=== PATIENT | female | born 1995 | race Caucasian/White ===

== ENCOUNTER → 2023-02-28 09:35 | Outpatient (CLI) | payer OTHER, MEDICAID, SELFPAY ==
[2023-02-28 11:18] LABS: Collection Time Urine 24 Hours; Protein (Total) Urine Random 77 mg/dL (0-12); Total Protein 24 Hour Urine 2310 mg/day (42-225); Total Volume Urine 3000 mL
== END ==
PROVIDERS: Referring Provider Midwife; Visit Provider Midwife
DX: Z34.03 Encounter for supervision of normal first pregnancy, third trimester (principal)
CPT/HCPCS: 84156

== ENCOUNTER 2023-02-28 10:02 | Observation (INO) | payer MEDICAID, SELFPAY ==
--- NOTE | 2023-02-28 10:45 | DI.US.S_ITS ---
PROCEDURE: US OB LIMITED INDICATIONS: GROWTH/ BIOPHYSICAL PROFILE OUTSIDE/PRIOR DATING DATA: Last menstrual period (LMP): 06/18/2022 LMP-based estimated date of delivery (JOSE EDUARDO): 03/25/2023 TECHNIQUE: Real-time scanning was performed of the fetus, with image documentation. Biometric measurements were obtained. Biophysical profile and umbilical artery spectral Doppler measurements were obtained. COMPARISON: None. FINDINGS: A single living intrauterine gestation is present. Presentation: Vertex. Placenta: Placental position is anterior, without previa. Amniotic fluid index: 7.6 cm, normal range is 5-24 cm. Single deepest vertical pocket is 3.8 cm. heart rate: 145 beats per minute. Maternal cervical canal: 4.6 cm long. Normal lower limit is 2.5 cm. BPD is 8.7 centimeters, 35 weeks, head circumference is 30.7 centimeters, 34 weeks and 2 days, abdominal circumference is 29.5 centimeters, 33 weeks and 3 days, femur length is 6.5 centimeters, 33 weeks and 5 days. Estimated gestational age is 36 weeks and 3 days. Biometry today measures 34 weeks and 1 day, at the 4th percentile. EFW is 2237 grams. 8/8 biophysical profile. Umbilical artery Doppler measures an ST ratio of up to 3.4-2.9. This is at the upper limit of normal for gestational age. No reversal of diastolic flow. IMPRESSION: biometric measurements as above, suggestive of less than expected growth, at the 4th percentile given working JOSE EDUARDO of 03/25/2023. Clinical correlation is recommended for dating. Fluid is within normal limits. BPP is 8/8. Umbilical artery Doppler with SD ratio at the upper limit of normal for gestational age (3.4). Consider continued follow-up. Dictated by: Ludwin Estevez M.D. on 02/28/2023 at 12:05 Approved by: Ludwin Estevez M.D. on 02/28/2023 at 12:09
[2023-02-28] MEDS: HYDRALAZINE 20 MG/ML VIAL 5 MG IV ×2 (10:59→11:27)
[2023-02-28 11:13] LABS: Add Manual Diff / Slide Review NO; Basophils Absolute Auto 0 /uL (0-100); Basophils Percent Auto 0.4 % (0-2); Eosinophils Absolute Auto 100 /uL (0-450); Eosinophils Percent Auto 0.9 % (2-4); Hematocrit 39.9 % (36-46); Hemoglobin 13.1 g/dL (12.0-16.0); Lymphocytes Absolute Auto 2500 /uL (1100-4500); Lymphocytes Percent Auto 29.1 % (25-40); Mean Corpuscular HGB Conc 32.7 % (30-36); Mean Corpuscular Hemoglobin 25.8 PG (26-34); Mean Corpuscular Volume 78.7 fL (80-100); Monocytes Absolute Auto 800 /uL (0-900); Monocytes Percent Auto 9.2 % (3-14); Neutrophils Absolute Auto 5200 /uL (1500-7000); Neutrophils Percent Auto 60.4 % (50-75); Platelet Count 291 X10^3/uL (150-400); Red Blood Cell Count 5.07 X10^6/uL (4.0-5.2); Red Cell Distribution Width 14.6 % (11.6-14.8); White Blood Cell Count 8.6 X10^3/uL (4.5-11.0)
[2023-02-28 11:19] LABS: Appearance Urine UA CLEAR; Bilirubin Urine UA NEGATIVE (NEGATIVE); Color Urine UA YELLOW; Glucose Urine UA NEGATIVE (Negative); Ketones Urine UA NEGATIVE (NEGATIVE); Leukocyte Esterase Urine UA NEGATIVE (NEGATIVE); Nitrite Urine UA NEGATIVE (Negative); Occult Blood Urine UA 1+ (Negative); Protein Urine UA NEGATIVE (Negative); Specific Gravity Urine UA <=1.005 (1.000-1.035); Urobilinogen Urine UA 0.2 E.U./dL (0.2); pH Urine UA 6.5 (4.5-8.0)
[2023-02-28 11:23] LABS: UR Morphine/Opiate cutoff 300 Negative (Negative); Ur Creatinine Normal (Normal); Ur Specific Gravity Normal (Normal); Urine Amphetamines Negative (Negative); Urine Barbiturates Negative (Negative); Urine Benzodiazepines Negative (Negative); Urine Cocaine Negative (Negative); Urine MDMA Negative (Negative); Urine Methadone Negative (Negative); Urine Methamphetamines Negative (Negative); Urine Oxycodone Negative (Negative); Urine Phencyclidine Negative (Negative); Urine Tetrahydrocannabinol Negative (Negative); Urine Tricyclic Antidepressant Negative (Negative); Urine pH Normal (Normal)
[2023-02-28 11:26] LABS: Bacteria Urine Few (2-10); Culture Indicated Urine Cult Not Indicated; RBC Urine 0-1/HPF (0-5/HPF); Squamous Epithelial Cell Urine 5-10 /HPF (0-5/HPF); WBC Urine 1-5/HPF (0-5/HPF)
[2023-02-28 11:29] LABS: Aspartate Aminotransferase 33 IU/L (14-36); BUN Creatinine Ratio 20.8 (6-22); Blood Urea Nitrogen 10 mg/dL (7-17); Estimated Glomerular Filt Rate > 60 mL/min (>60); Magnesium 1.8 mg/dL (1.6-2.3); Uric Acid 4.4 mg/dL (2.5-6.2)
[2023-02-28 11:35] LABS: Protein (Total) Urine Random 38 mg/dL (0-12); Protein Creatinine Ratio Urine 4.75 GRAM/24H
[2023-02-28] MEDS: LABETALOL 20 MG/4 ML SYRINGE IV ×3 (12:32→20:31)
--- NOTE | 2023-02-28 14:26 | PM.OBHP.1 ---
OB HPI Date/Time Date of admission: 02/28/23 Date Patient Seen: 02/28/23 Time Patient Seen: 10:15 History of Present Condition Chief complaint: Hypertension in : 1 Para: 0 Estimated Date of Delivery: 03/25/23 Estimated Gestational Age (weeks): 36 Narrative: Farhan Segundo is a 28 year old female who presented to labor and delivery on encouragement from her manager environmental health for elevated blood pressures in History of Present care: limited care (Patient initial visit was approximately 20 weeks' gestation normal follow-up since) and initiated at week # (20) Dating criteria: based on LMP only Ultrasounds: normal mid trimester US Obstetrical complications: gestational hypertension (Beginning around 20 weeks) Medical complications: none Preadmission Labs Blood type: AB (+) positive -: Antibody screen: negative, GBS status: unknown (Patient refused), HBsAG: negative, HIV: negative and RPR/VDLR: negative -: Chlamydia screen: not detected and Gonorrhea screen: not detected -: Rubella: immune HCAB: negative 1 hr GTT: 85 Evaluation Evaluation Baseline heart rate: 150 Variability: Moderate (11-25) monitor accelerations: Present Monitor Decelerations: Absent Uterine Contraction Intensity: Mild Status: Category l Meds Home Medications and Allergies Allergies Allergy/AdvReac Type Severity Reaction Status Date / Time Sulfa (Sulfonamide Allergy Severe Shortness Verified 02/28/23 14:32 Antibiotics) of breath Review of Systems Review of Systems Narrative: Patient denies headaches, scotomata, epigastric pain. Good movement. No leakage of fluid. No vaginal bleeding. No contractions. OB Exam Narrative Exam Narrative: HEENT exam within normal limits. Lungs are clear to auscultation percussion. No thyromegaly. Heart is regular rate and rhythm no S3-S4 murmurs. Abdomen is soft, nontender. Abdomen is gravid. Fetus is vertex. Extremities without edema and nontender. Normal DTRs. Objective Imaging US - abdomen: Radiologist's impression: PROCEDURE:? US OB LIMITED ? INDICATIONS:? GROWTH/ BIOPHYSICAL PROFILE ? OUTSIDE/PRIOR DATING DATA:? Last menstrual period (LMP):? 06/18/2022 LMP-based estimated date of delivery (JOSE EUDARDO):? 03/25/2023 ? TECHNIQUE: Real-time scanning was performed of the fetus, with image documentation.? Biometric measurements were obtained.? Biophysical profile and umbilical artery spectral Doppler measurements were obtained. ? COMPARISON:? None. ? FINDINGS:? A single living intrauterine gestation is present.? Presentation:? Vertex.? Placenta:? Placental position is anterior, without previa.? ? Amniotic fluid index:? 7.6 cm, normal range is 5-24 cm. Single deepest vertical pocket is 3.8 cm.? ? heart rate:? 145 beats per minute.? Maternal cervical canal:? 4.6 cm long.? Normal lower limit is 2.5 cm.? ? BPD is 8.7 centimeters, 35 weeks, head circumference is 30.7 centimeters, 34 weeks and 2 days, abdominal circumference is 29.5 centimeters, 33 weeks and 3 days, femur length is 6.5 centimeters, 33 weeks and 5 days. ? Estimated gestational age is 36 weeks and 3 days. ? Biometry today measures 34 weeks and 1 day, at the 4th percentile.? EFW is 2237 grams. ? 01/28 biophysical profile. ? Umbilical artery Doppler measures an ST ratio of up to 3.4-2.9.? This is at the upper limit of normal for gestational age.? No reversal of diastolic flow. ? IMPRESSION:? biometric measurements as above, suggestive of less than expected growth, at the 4th percentile given working JOSE EDUARDO of 03/25/2023.? Clinical correlation is recommended for dating. Fluid is within normal limits. ? BPP is 8. ? Umbilical artery Doppler with SD ratio at the upper limit of normal for gestational age (3.4) Labs 02/28/23 10:50 02/28/23 10:50 Labs: Laboratory Results - last 24 hr 02/28/23 02/28/23 02/28/23 10:30 10:30 10:30 WBC RBC Hgb Hct MCV MCH MCHC RDW Plt Count Neut % (Auto) Lymph % (Auto) [place] % (Auto) Eos % (Auto) Baso % (Auto) Neut # (Auto) Lymph # (Auto) [place] # (Auto) Eos # (Auto) Baso # (Auto) BUN Creatinine Estimated GFR BUN/Creatinine Ratio Uric Acid Magnesium AST Urine Color Yellow Urine Appearance Clear Urine pH 6.5 Ur Specific [place] <=1.005 Urine Protein Negative Urine Glucose (UA) Negative Urine Ketones Negative Urine Occult Blood 1+ H Urine Nitrate Negative Urine Bilirubin Negative Urine Urobilinogen 0.2 Ur Leukocyte Esterase Negative Urine RBC 0-1/hpf Urine WBC 1-5/hpf Ur Squamous Epith Cells 5-10 /hpf H Urine Bacteria Few (2-10) H Ur Culture Indicated? Cult not indicated U Random Total Protein 38 H Urine Creatinine 8.0 Protein/Creatinin Ratio 4.75 U Opiates 300ng/mL cut Negative Ur Oxycodone Screen Negative Urine Methadone Screen Negative Ur Barbiturates Screen Negative U Tricyclic Antidepress Negative Ur Phencyclidine Scrn Negative Ur Amphetamines Screen Negative U Methamphetamines Scrn Negative Ur MDMA Scrn (Ecstasy) Negative U Benzodiazepines Scrn Negative Urine Cocaine Screen Negative U Marijuana (THC) Screen Negative 02/28/23 02/28/23 10:50 10:50 WBC 8.6 RBC 5.07 Hgb 13.1 Hct 39.9 MCV 78.7 L MCH 25.8 L MCHC 32.7 RDW 14.6 Plt Count 291 Neut % (Auto) 60.4 Lymph % (Auto) 29.1 [place] % (Auto) 9.2 Eos % (Auto) 0.9 L Baso % (Auto) 0.4 Neut # (Auto) 5200 Lymph # (Auto) 2500 [place] # (Auto) 800 Eos # (Auto) 100 Baso # (Auto) 0 BUN 10 Creatinine 0.48 L Estimated GFR > 60 BUN/Creatinine Ratio 20.8 Uric Acid 4.4 Magnesium 1.8 AST 33 Urine Color Urine Appearance Urine pH Ur Specific [place] Urine Protein Urine Glucose (UA) Urine Ketones Urine Occult Blood Urine Nitrate Urine Bilirubin Urine Urobilinogen Ur Leukocyte Esterase Urine RBC Urine WBC Ur Squamous Epith Cells Urine Bacteria Ur Culture Indicated? U Random Total Protein Urine Creatinine Protein/Creatinin Ratio U Opiates 300ng/mL cut Ur Oxycodone Screen Urine Methadone Screen Ur Barbiturates Screen U Tricyclic Antidepress Ur Phencyclidine Scrn Ur Amphetamines Screen U Methamphetamines Scrn Ur MDMA Scrn (Ecstasy) U Benzodiazepines Scrn Urine Cocaine Screen U Marijuana (THC) Screen Assessment and Plan Assessment and Plan Assessment and Plan narrative: 28-year-old EDC 04/22/2023 at 36 weeks 3 days with severe preeclampsia by blood pressure and proteinuria. IUGR at 4th percentile on ultrasound today with NAKUL of 7.6. No evidence of HELLP syndrome. Patient will be treated with IV blood pressure medication. Begin Mag sulfate. Betamethasone. Discussed due to no early dating consider transport to hospital with available NICU. Time Spent with Patient Total time spent with greater than 50% in coordination of care (as documented) at patient's floor/unit and/or counseling patient:: Greater than 35 minutes
[2023-02-28] MEDS: MAGNESIUM SULFATE 4 GM/100 ML PIGGYBACK IV (14:35)
--- NOTE | 2023-02-28 14:38 | PM.PN.1 ---
Subjective Subjective Date Patient Seen: 02/28/23 Time Patient Seen: 14:38 Interval history: Patient with poor blood pressure control despite IV hydralazine and IV labetalol. Patient being resistant at all points to initially having any other medication then hydralazine and initially refused magnesium sulfate until she talks to her ?health care analyst at 8:00 p.m. ?. Patient is declining betamethasone at this time as well. After continuing to discussed with the patient my concern that she could have a seizure or stroke that could lead to her and or the baby's she has finally agreed to start magnesium sulfate but is currently refusing further treatment. Exam Vital Signs (past 8 hours): Blood pressure currently 137/95 with pulse of 84 Objective Labs 02/28/23 10:50 02/28/23 10:50 Labs: Laboratory Results - last 24 hr 02/28/23 02/28/23 02/28/23 10:30 10:30 10:30 WBC RBC Hgb Hct MCV MCH MCHC RDW Plt Count Neut % (Auto) Lymph % (Auto) [place] % (Auto) Eos % (Auto) Baso % (Auto) Neut # (Auto) Lymph # (Auto) [place] # (Auto) Eos # (Auto) Baso # (Auto) BUN Creatinine Estimated GFR BUN/Creatinine Ratio Uric Acid Magnesium AST Urine Color Yellow Urine Appearance Clear Urine pH 6.5 Ur Specific [place] <=1.005 Urine Protein Negative Urine Glucose (UA) Negative Urine Ketones Negative Urine Occult Blood 1+ H Urine Nitrate Negative Urine Bilirubin Negative Urine Urobilinogen 0.2 Ur Leukocyte Esterase Negative Urine RBC 0-1/hpf Urine WBC 1-5/hpf Ur Squamous Epith Cells 5-10 /hpf H Urine Bacteria Few (2-10) H Ur Culture Indicated? Cult not indicated U Random Total Protein 38 H Urine Creatinine 8.0 Protein/Creatinin Ratio 4.75 U Opiates 300ng/mL cut Negative Ur Oxycodone Screen Negative Urine Methadone Screen Negative Ur Barbiturates Screen Negative U Tricyclic Antidepress Negative Ur Phencyclidine Scrn Negative Ur Amphetamines Screen Negative U Methamphetamines Scrn Negative Ur MDMA Scrn (Ecstasy) Negative U Benzodiazepines Scrn Negative Urine Cocaine Screen Negative U Marijuana (THC) Screen Negative 02/28/23 02/28/23 10:50 10:50 WBC 8.6 RBC 5.07 Hgb 13.1 Hct 39.9 MCV 78.7 L MCH 25.8 L MCHC 32.7 RDW 14.6 Plt Count 291 Neut % (Auto) 60.4 Lymph % (Auto) 29.1 [place] % (Auto) 9.2 Eos % (Auto) 0.9 L Baso % (Auto) 0.4 Neut # (Auto) 5200 Lymph # (Auto) 2500 [place] # (Auto) 800 Eos # (Auto) 100 Baso # (Auto) 0 BUN 10 Creatinine 0.48 L Estimated GFR > 60 BUN/Creatinine Ratio 20.8 Uric Acid 4.4 Magnesium 1.8 AST 33 Urine Color Urine Appearance Urine pH Ur Specific [place] Urine Protein Urine Glucose (UA) Urine Ketones Urine Occult Blood Urine Nitrate Urine Bilirubin Urine Urobilinogen Ur Leukocyte Esterase Urine RBC Urine WBC Ur Squamous Epith Cells Urine Bacteria Ur Culture Indicated? U Random Total Protein Urine Creatinine Protein/Creatinin Ratio U Opiates 300ng/mL cut Ur Oxycodone Screen Urine Methadone Screen Ur Barbiturates Screen U Tricyclic Antidepress Ur Phencyclidine Scrn Ur Amphetamines Screen U Methamphetamines Scrn Ur MDMA Scrn (Ecstasy) U Benzodiazepines Scrn Urine Cocaine Screen U Marijuana (THC) Screen Assessment & Plan Assessment and plan (1) 36 weeks gestation of : Status: Acute (2) Severe pre-eclampsia affecting first : Status: Acute (3) Asymmetric IUGR affecting , antepartum: Status: Acute Assessment & Plan narrative: Patient with severe preeclampsia, asymmetrical IUGR infant with patient resistance to protocol for treatment for severe preeclampsia. At this time patient is finally convinced that we can start magnesium sulfate. She still is resistant to discussion of delivery. [facility] at this point. Patient previously had declined group B strep. She is currently declining betamethasone.
[2023-02-28] MEDS: MAGNESIUM SULFATE 20 GM/500 ML IV.SOLN IV (15:27)
--- NOTE | 2023-02-28 18:09 | PM.OBPNLAB ---
Date/Time Date Patient Seen: 02/28/23 Time Patient Seen: 18:09 Pain Control Comments: Dr. Ortiz, electrician locomotive on-call, Crystal Jimenez CNM and I discussed again with the patient the concerns for the baby. Also discussed again that it might be more appropriate for the patient be transferred to a hospital that has a NICU so that if the baby needs to be transported then she would not be from the baby. This was explained again that she could not be transferred with the baby so transferring well she is still would allow her to be with the baby if the baby was admitted to the NICU. Patient has a mild left-sided headache, she declines Tylenol. She is having food and feels that eating will help her headache. Discussion about why she wants to talk to her and her metallurgical laboratory assistant is related to the fact that earlier in the she was diagnosed with abnormal thyroid levels with the high blood pressure starting after this diagnosis and she was told that the high blood pressure could be related to her thyroid abnormalities. More closely reviewing records concerning the thyroid levels. Patient's TSH less than 0.005 on initial and then repeat labs. Normal thyroid peroxidase antibodies checked twice the 07 13 and the 08 18 with normal range 0-34. Patient is free T4 was elevated at 2.49 on 11/20/2022 lab (normal for 2nd trimester 0.6-1), on 01/09/2023, 1.67 (reference range 0.82 -1.77) , 02/19/2023 1.28 (3rd trimester range 0.5 to 0.8). Free T3 on 01/09/2023 4.5 with reference range 2 to 4.4, repeat 2.9. It appears she may have been told that part of her elevated blood pressures was due to her thyroid abnormality. In the project inspector notes when the patient's blood pressure was elevated and she had talk to her metallurgical laboratory assistant in [place] they recommended additional thyroid labs and medication for her blood pressure. [place] but never made an appointment. Pelvic Exam Dilation (cm): 0 Effacement (%): 75 station: -1 Amniotic membrane status: Intact Comments: Current blood pressure 149/94 Contractions Contractions on admission: irregular Contraction intensity: Mild Status status: Category l Heart Rate Baseline: 150 Monitor Accelerations: Present Monitor Decelerations: Absent Monitor Variability: Moderate Assessment and Plan Assessment: other (Blood pressure more stable on magnesium sulfate but increasing slightly) Comments: Will start oral nifedipine. Waiting for patient to decide if they are willing to be transferred or start induction.
[2023-02-28] MEDS: NIFEdipine 30 MG TAB ER 60 MG PO (18:53)
[2023-02-28 20:31] VITALS: BP 160/112; PULSE 82
[2023-02-28 20:33] LABS: Magnesium 4.7 mg/dL (1.6-2.3)
[2023-02-28 22:01] VITALS: BP 128/80
--- NOTE | 2023-02-28 22:31 | PM.DS.1 ---
History of Present Illness History of Present Illness Date Patient Seen: 02/28/23 Time Patient Seen: 22:31 Date of Onset of Symptoms: 02/26/23 Chief complaint: Hypertension in Narrative: Severe preeclampsia with asymmetrical IUGR infant at 36 weeks 3 days Discharge Providers Provider Date of admission: 02/28/23 10:02 Discharge Date: 03/01/23 Discharge provider: Germaine Bacon MD Summary Hospital Course Discharge Diagnosis: 36 week 3 day severe preeclamptic patient with asymmetrical IUGR Hospital Course: Patient arrived on Labor and delivery with uncontrolled blood pressures and significant proteinuria eventually controlled with hydralazine, labetalol, IV magnesium sulfate and p.o. nifedipine. Patient was found to have an asymmetrical IUGR weighing 2237g. Patient was transferred for delivery where NICU available. Status at Discharge Cognitive/behavioral status at discharge: oriented Functional status at discharge: independent ambulation Overall status at discharge: other (Blood pressure stable on medication) Time Spent with Patient Time spent: Greater than 30 minutes Exam Vital Signs (past 8 hours): - 02/28/23 20:31 02/28/23 22:01 Pulse Rate 82 Blood Pressure 160/112 H 128/80 Narrative Exam Narrative: Patient is lungs are clear. Heart is regular rate and rhythm no S3-S4 murmurs. Abdomen is gravid with vertex fetus in nontender. Extremities without edema and normal DTRs. Objective Imaging US - abdomen: Radiologist's impression: Asymmetrical IUGR 4th percentile 2237 g, NAKUL 7.6, 8/8 biophysical profile Labs 02/28/23 10:50 02/28/23 10:50 Labs: Laboratory Results - last 24 hr 02/28/23 02/28/23 02/28/23 10:30 10:30 10:30 WBC RBC Hgb Hct MCV MCH MCHC RDW Plt Count Neut % (Auto) Lymph % (Auto) [place] % (Auto) Eos % (Auto) Baso % (Auto) Neut # (Auto) Lymph # (Auto) [place] # (Auto) Eos # (Auto) Baso # (Auto) BUN Creatinine Estimated GFR BUN/Creatinine Ratio Uric Acid Magnesium AST Urine Color Yellow Urine Appearance Clear Urine pH 6.5 Ur Specific [place] <=1.005 Urine Protein Negative Urine Glucose (UA) Negative Urine Ketones Negative Urine Occult Blood 1+ H Urine Nitrate Negative Urine Bilirubin Negative Urine Urobilinogen 0.2 Ur Leukocyte Esterase Negative Urine RBC 0-1/hpf Urine WBC 1-5/hpf Ur Squamous Epith Cells 5-10 /hpf H Urine Bacteria Few (2-10) H Ur Culture Indicated? Cult not indicated U Random Total Protein 38 H Urine Creatinine 8.0 Protein/Creatinin Ratio 4.75 U Opiates 300ng/mL cut Negative Ur Oxycodone Screen Negative Urine Methadone Screen Negative Ur Barbiturates Screen Negative U Tricyclic Antidepress Negative Ur Phencyclidine Scrn Negative Ur Amphetamines Screen Negative U Methamphetamines Scrn Negative Ur MDMA Scrn (Ecstasy) Negative U Benzodiazepines Scrn Negative Urine Cocaine Screen Negative U Marijuana (THC) Screen Negative 02/28/23 02/28/23 02/28/23 10:50 10:50 20:15 WBC 8.6 RBC 5.07 Hgb 13.1 Hct 39.9 MCV 78.7 L MCH 25.8 L MCHC 32.7 RDW 14.6 Plt Count 291 Neut % (Auto) 60.4 Lymph % (Auto) 29.1 [place] % (Auto) 9.2 Eos % (Auto) 0.9 L Baso % (Auto) 0.4 Neut # (Auto) 5200 Lymph # (Auto) 2500 [place] # (Auto) 800 Eos # (Auto) 100 Baso # (Auto) 0 BUN 10 Creatinine 0.48 L Estimated GFR > 60 BUN/Creatinine Ratio 20.8 Uric Acid 4.4 Magnesium 1.8 4.7 H AST 33 Urine Color Urine Appearance Urine pH Ur Specific [place] Urine Protein Urine Glucose (UA) Urine Ketones Urine Occult Blood Urine Nitrate Urine Bilirubin Urine Urobilinogen Ur Leukocyte Esterase Urine RBC Urine WBC Ur Squamous Epith Cells Urine Bacteria Ur Culture Indicated? U Random Total Protein Urine Creatinine Protein/Creatinin Ratio U Opiates 300ng/mL cut Ur Oxycodone Screen Urine Methadone Screen Ur Barbiturates Screen U Tricyclic Antidepress Ur Phencyclidine Scrn Ur Amphetamines Screen U Methamphetamines Scrn Ur MDMA Scrn (Ecstasy) U Benzodiazepines Scrn Urine Cocaine Screen U Marijuana (THC) Screen [facility] Social History Smoking Status: Never smoker Discharge Assessment & Plan Assessment and Plan Assessment: 28-year-old EDC 03/25/23 by LMP confirmed by 22 week ultrasound, although no care prior to 20 weeks, admitted and treated for severe preeclampsia currently on IV magnesium sulfate with asymmetrical IUGR found on ultrasound with fetus measuring 2237 g. Plan of Treatment: Patient is agreeable to transferred to [facility] in [place] Labor and delivery for induction for delivery with the availability of intensive care unit. Discharge Plan Discharge Plan Patient Disposition: [facility] Under care of provider: Dr. Deleon, [facility] labor and delivery [place] Discharge orders & Medications Prescriptions: No Action aspirin 81 mg Tablet,Chewable 81 mg PO DAILY Calcium Magnesium DHA Diet/Activity/Treatments Diet: Clear Liquid Activity: Bedrest with bathroom privileges Discharge Data Attending Provider: Germaine Bacon Admit Date/Time: 02/28/23 10:02
[2023-02-28 22:37] LABS: Free T3, Triiodothyronine Free 4.41 pg/mL (2.77-5.27)
[2023-02-28 22:38] LABS: Free T4, Direct Thyroxine 1.38 ng/dL (0.78-2.19)
[2023-02-28 22:54] LABS: Thyroid Stimulating Hormone < 0.015 uIU/mL (0.47-4.68)
== END 2023-03-01 01:00 | disposition short-term general hospital (02) ==
PROVIDERS: Admitting Provider Specialist; Referring Provider Specialist; Visit Provider Specialist
DX: O14.13 Severe pre-eclampsia, third trimester (principal); O36.5930 Maternal care for other known or suspected poor fetal growth, third trimester, not applicable or unspecified; Z3A.36 36 weeks gestation of pregnancy
CPT/HCPCS: 36415; 59025; 59050; 76815; 76819; 80305; 81001; 82570; 83735; 84156; 84439; 84443; 84450; 84481; 84550; 85025; 96360; 96361; 99233; G0378; G0379; J0360; J3475

== ENCOUNTER → 2025-04-14 11:20 | Outpatient (CLI) | payer OTHER, SELFPAY ==
[2025-04-14 18:59] LABS: Add Manual Diff / Slide Review NO; Hematocrit 39.8 % (36-46); Hemoglobin 13.0 g/dL (12.0-16.0); Lymphocytes Absolute Auto 2500 /uL (1100-4500); Mean Corpuscular HGB Conc 32.6 % (30-36); Mean Corpuscular Hemoglobin 25.5 PG (26-34); Mean Corpuscular Volume 78.4 fL (80-100); Platelet Count 291 X10^3/uL (150-400)
[2025-04-14 19:14] LABS: Alanine Aminotransferase 24 IU/L (<35); Albumin 4.6 g/dL (3.5-5.0); Albumin Globulin Ratio 1.4 (1.0-2.8); Alkaline Phosphatase 106 U/L (38-126); Blood Urea Nitrogen 12 mg/dL (7-17); Calcium 9.4 mg/dL (8.4-10.2); Carbon Dioxide 27 mmol/L (22-32); Chloride 103 mmol/L (98-107); Estimated Glomerular Filt Rate > 60 mL/min (>60); Globulin 3.3 g/dL (1.7-4.1); Glucose 96 mg/dL (70-99); HEMOLYSIS < 15 (0-50); Potassium 4.4 mmol/L (3.4-5.1); Sodium 138 mmol/L (137-145); Total Protein 7.9 g/dL (6.3-8.2)
[2025-04-14 19:22] LABS: Free T3, Triiodothyronine Free 18.50 pg/mL (2.77-5.27)
[2025-04-14 19:38] LABS: TSH w/ Reflex to FT4 < 0.02 uIU/mL (0.47-4.68)
[2025-04-14 20:03] LABS: Free T4, Direct Thyroxine 5.97 ng/dL (0.78-2.19)
== END ==
PROVIDERS: Visit Provider Physician Assistant Medical
DX: E05.90 Thyrotoxicosis, unspecified without thyrotoxic crisis or storm (principal); E04.9 Nontoxic goiter, unspecified
CPT/HCPCS: 80053; 84439; 84443; 84481; 85025; 86376; 86800